=== PATIENT | female | born 1960 | race Caucasian/White ===

== ENCOUNTER 2018-01-03 10:48 | Inpatient (IN) | payer BC ==
[2018-01-03] VITALS (351 sets, daily range): BP systolic 89–112; BP diastolic 57–77; PULSE 95–111; TEMP 97–97.6; O2SAT 81–100
[~2018-01-03] VITALS: Ht 165.1 cm; Wt 54.5 kg
[2018-01-03 11:01] LABS: ARTERIAL BLD GAS O2 SATURATION 90.4 % (92-100); ARTERIAL BLD GAS TCO2 CT 25.8; ARTERIAL BLOOD GAS BASE EXCESS 1.3 (-2-2); ARTERIAL BLOOD GAS HCO3 24.7 meq/L (22-26); ARTERIAL BLOOD GAS PCO2 35.1 mmHg (35-45); ARTERIAL BLOOD GAS PO2 60.4 mmHg (80-100); ARTERIAL BLOOD GAS pH 7.47 (7.35-7.45)
[2018-01-03 11:22] LABS: COLLECTION METHOD CATHETER
[2018-01-03 11:33] LABS: MUCOUS Present /lpf; PH 5 (5-8); SQUAMOUS EPITHELIAL 0-2 /hpf; URINE APPEARANCE Cloudy; URINE BACTERIA None Seen /hpf; URINE BILIRUBIN Negative (NEGATIVE); URINE BLOOD 2+ (NEGATIVE); URINE COLOR Amber; URINE GLUCOSE Negative (NEGATIVE); URINE KETONE Negative (NEGATIVE); URINE LEUKOCYTE ESTERASE Negative (NEGATIVE); URINE NITRATE Negative (NEGATIVE); URINE PROTEIN(semi-quant) Negative (NEGATIVE); URINE UROBILINOGEN >=4.0 mg/dL (NEGATIVE)
[2018-01-03 14:02] LABS: MEAN CELL VOLUME 84 fl (80.0-100.0); MEAN CORPUSCULAR HGB CONC 30 g/dl (33.0-37.0); MEAN PLATELET VOLUME 8.9 fl (7.4-10.4); PLATELET COUNT 256 K/mm3 (130-400); RED BLOOD COUNT 3.87 M/mm3 (4.10-5.30); REDCELL DISTRIBUTION WIDTH-CV 15.3 % (11.5-14.5)
[2018-01-03 14:10] LABS: ALANINE AMINOTRANSFERASE 40 U/L (9-52); ALBUMIN 2.1 gm/dL (3.5-5.0); ALKALINE PHOSPHATASE 186 U/L (50-136); ANION GAP 10 mmol/L (7-16); AST,SGOT 56 U/L (15-37); BILIRUBIN,TOTAL 0.6 mg/dL (0.0-1.0); BLOOD UREA NITROGEN 23 mg/dL (7-17); CARBON DIOXIDE 25 mmol/L (22-30); CHLORIDE 102 mmol/L (98-107); CREATINE KINASE 50 U/L (30-135); CREATININE, serum 0.79 mg/dL (0.52-1.25); GLUCOSE 217 mg/dL (74-106); LIPASE 999 U/L (23-300); POTASSIUM 3.6 mmol/L (3.4-5.0); SODIUM 137 mmol/L (137-145); TOTAL PROTEIN 4.9 gm/dL (6.4-8.2)
[2018-01-03 14:12] LABS: INR 1.7 (0.8-3.0)
[2018-01-03 14:15] LABS: PARTIAL THROMBOPLASTIN TIME 30.8 SECONDS (26.0-37.0)
[2018-01-03 14:18] LABS: HEMATOCRIT 32.3 % (37.0-47.0); HEMOGLOBIN 9.8 g/dl (12.5-16.0); MEAN CORPUSCULAR HEMOGLOBIN 25 pg (27.0-31.0)
[2018-01-03 14:21] LABS: TROPONIN-I 0.018 ng/mL (0.000-0.034)
[2018-01-03 14:22] LABS: ACETAMINOPHEN < 10 ug/mL (10-30); ALCOHOL(ethanol),MEDICAL < 10 mg/dL; SALICYLATE < 1.0 mg/dL
[2018-01-03 14:23] LABS: CALCIUM 13.1 mg/dL (8.4-10.2)
[2018-01-03 14:44] LABS: BAND 1 % (0-10); LYMPHOCYTE 12 % (20.0-51.0); MYELOCYTE 1 % (0-0); NEUTROPHILS 86 % (42.0-75.2)
[2018-01-03 14:45] LABS: ANISOCYTOSIS 1+; HYPOCHROMIA 1+; PLATELET ESTIMATE NORMAL (NORMAL)
[2018-01-03 16:44] LABS: BILIRUBIN,TOTAL 0.6 mg/dL (0.0-1.0); CREATININE, serum 0.82 mg/dL (0.52-1.25); POTASSIUM 3.4 mmol/L (3.4-5.0); TOTAL PROTEIN 4.9 gm/dL (6.4-8.2)
[2018-01-03 16:50] LABS: CALCIUM 13.3 mg/dL (8.4-10.2)
[2018-01-03 17:06] LABS: CHOLESTEROL RISK RATIO 3.7
[2018-01-03 17:38] LABS: TRICYCLIC ANTIDEPRESS URINE NEGATIVE
[2018-01-03 20:12] LABS: RETIC # 0.08 M/mm3 (0.02-0.16); RETIC % 2.1 % (0.5-3.52)
[2018-01-03 20:15] LABS: IRON,SERUM < 10 ug/dL (35-150)
[2018-01-03 20:24] LABS: TOTAL IRON BINDING CAPACITY 114 ug/dL (265-497)
[2018-01-03 21:37] LABS: FERRITIN 4900 ng/mL (11-264)
[2018-01-03 23:21] LABS: T3 FREE (TRI-IODOTHYRONINE) <1.0 pg/mL (1.7-3.7)
[2018-01-03 23:23] LABS: PROCALCITONIN 5.05 ng/mL (0.00-0.09)
[2018-01-04] VITALS (435 sets, daily range): BP systolic 97–111; BP diastolic 64–83; PULSE 99–109; TEMP 97.3–97.8; O2SAT 83–100
[2018-01-04 00:02] LABS: HEMATOCRIT 31.3 % (37.0-47.0); HEMOGLOBIN 9.6 g/dl (12.5-16.0)
[2018-01-04 00:21] LABS: CREATININE, serum 0.7 mg/dL (0.52-1.25)
[2018-01-04 00:24] LABS: CALCIUM 12.8 mg/dL (8.4-10.2)
[2018-01-04 04:08] LABS: MEAN CELL VOLUME 82 fl (80.0-100.0); MEAN CORPUSCULAR HGB CONC 31 g/dl (33.0-37.0); MEAN PLATELET VOLUME 8.9 fl (7.4-10.4); PLATELET COUNT 252 K/mm3 (130-400); RED BLOOD COUNT 3.68 M/mm3 (4.10-5.30); REDCELL DISTRIBUTION WIDTH-CV 15.5 % (11.5-14.5)
[2018-01-04 04:09] LABS: HEMATOCRIT 30.1 % (37.0-47.0); HEMOGLOBIN 9.4 g/dl (12.5-16.0); MEAN CORPUSCULAR HEMOGLOBIN 26 pg (27.0-31.0)
[2018-01-04 04:18] LABS: INR 1.8 (0.8-3.0); PROTHROMBIN TIME 20.2 SECONDS (9.7-12.8)
[2018-01-04 04:20] LABS: ALBUMIN 2.1 gm/dL (3.5-5.0); BILIRUBIN,TOTAL 0.3 mg/dL (0.0-1.0); CALCIUM 12.5 mg/dL (8.4-10.2); CREATININE, serum 0.68 mg/dL (0.52-1.25); POTASSIUM 3.6 mmol/L (3.4-5.0); TOTAL PROTEIN 4.9 gm/dL (6.4-8.2)
[2018-01-04 05:15] LABS: BAND 6 % (0-10); HYPOCHROMIA 2+; LYMPHOCYTE 24 % (20.0-51.0); METAMYELOCYTE 1 % (0-0); NEUTROPHILS 68 % (42.0-75.2)
[2018-01-04 05:16] LABS: ANISOCYTOSIS 1+; PLATELET ESTIMATE NORMAL (NORMAL)
[2018-01-04 05:17] LABS: POLYCHROMASIA 1+
[2018-01-04 10:48] LABS: ARTERIAL BLD GAS O2 SATURATION 97.2 % (92-100); ARTERIAL BLD GAS TCO2 CT 23.6; ARTERIAL BLOOD GAS BASE EXCESS -1.1 (-2-2); ARTERIAL BLOOD GAS HCO3 22.6 meq/L (22-26); ARTERIAL BLOOD GAS PO2 98.8 mmHg (80-100); ARTERIAL BLOOD GAS pH 7.44 (7.35-7.45)
[2018-01-04 16:57] LABS: FOLATE (FOLIC ACID) 2.1 ng/mL (7.0-31.4)
== END 2018-01-04 15:27 | disposition short-term general hospital (02) | DRG 871 ==
LOC: COL.ER 10:48 → ICU 12:15
PROVIDERS: Emergency Medicine; Family Medicine; Nurse Practitioner Family
PROC: 02HV33Z Insertion of Infusion Device into Superior Vena Cava, Percutaneous Approach (ICD-10-PCS; principal; 2018-01-03)
DX: A41.9 Sepsis, unspecified organism (principal); J18.9 Pneumonia, unspecified organism; G93.41 Metabolic encephalopathy; R00.0 Tachycardia, unspecified; E83.52 Hypercalcemia; C53.9 Malignant neoplasm of cervix uteri, unspecified; D64.9 Anemia, unspecified; R31.29 Other microscopic hematuria
CPT/HCPCS: 99223-AI; 99239; A4314; C1751; C1894; J0630; J1650; J1815; J1940; J1956; J2430; J2543; J3370; J3480; J7030; J7040; J7050; J7060; Q9967